=== PATIENT | male | born 1950 | race African-American/Black ===

== ENCOUNTER 2021-07-21 00:43 | Inpatient (IN) | payer OTHER ==
[~2021-07-21] VITALS: Ht 175.3 cm; Wt 124.3 kg
[2021-07-21] VITALS (14 sets, daily range): BP systolic 146–189; BP diastolic 76–101
[2021-07-21] MEDS ORDERED: METOCLOPRAMIDE HCL 10MG/2ML VIAL IV ONE (01:45)
[2021-07-21] MEDS ORDERED: SODIUM CHLORIDE 0.9% 1,000 ML IV ONE ×2 (01:45)
[2021-07-21 02:08] LABS: BASOPHILS % 0.7 % (0.0-2.0); EOSINOPHILS % 1.3 % (0.0-5.0); HEMATOCRIT. 37.9 % (42.0-52.0); HEMOGLOBIN. 11.8 g/dL (14.0-18.0); LYMPHOCYTES % 22.3 % (20.0-50.0); MEAN CORPUSCULAR HEMOGLOBIN 21.6 pg (28.0-32.0); MEAN CORPUSCULAR VOLUME 69.3 fL (80.0-94.0); MEAN PLATELET VOLUME 9.3 fl (7.4-10.4); MONOCYTES % 5.1 % (2.0-8.0); NEUTROPHILS % 70.6 % (40.0-76.0); PLATELET 216 x1000/uL (130-400); RED BLOOD CELL COUNT 5.48 mill/uL (4.7-6.1); RED CELL DISTRIBUTION WIDTH 16.8 % (11.6-14.6)
[2021-07-21 02:18] LABS: PROTHROMBIN TIME 11.1 sec (9.6-11.0)
[2021-07-21 02:20] LABS: CHLORIDE 106 mEq/L (98-107)
[2021-07-21 03:04] LABS: ETHANOL BLOOD < 10 mg/dL
[2021-07-21] MEDS ORDERED: PIPERACILLIN/TAZOBACTAM 3.375GM/50ML PREMIX IV ONE (03:15)
[2021-07-21] MEDS ORDERED: PIPERACILLIN/TAZ 3.375G PREMIX 50 ML IV NR (03:15)
[2021-07-21] MEDS ORDERED: HYDRALAZINE 20MG/ML VIAL IV ONE (03:30)
[2021-07-21 04:43] LABS: CLARITY URINE CLEAR (CLEAR); COLOR URINE YELLOW (YELLOW); KETONES URINE NEGATIVE (NEGATIVE); LEUKOCYTE ESTERASE URINE 1+ (NEGATIVE); NITRITE URINE NEGATIVE (NEGATIVE); OCCULT BLOOD URINE NEGATIVE (NEGATIVE); PROTEIN URINE NEGATIVE (NEGATIVE); SPECIFIC GRAVITY URINE 1.028 (1.005-1.030); UROBILINOGEN URINE 0.2 E.U./dL (0.2-1.0)
[2021-07-21 04:54] LABS: PLATELET ESTIMATE NORMAL
[2021-07-21 05:23] LABS: *BARBITURATES SCREEN URINE NEGATIVE (NEGATIVE)
[2021-07-21 05:24] LABS: *BENZODIAZEPINES SCREEN URINE NEGATIVE (NEGATIVE); *COCAINE SCREEN URINE NEGATIVE (NEGATIVE); CANNABINOID URINE SCREEN NEGATIVE (NEGATIVE); OPIATES URINE SCREEN NEGATIVE (NEGATIVE); PHENCYCLIDINE URINE SCREEN NEGATIVE (NEGATIVE)
[2021-07-21] MEDS ORDERED: IOHEXOL-300 100 ML BOTTLE ONE (05:28)
[2021-07-21 05:30] LABS: METHADONE URINE SCREEN NEGATIVE (NEGATIVE)
[2021-07-21 05:31] LABS: *AMPHETAMINES SCREEN URINE NEGATIVE (NEGATIVE)
[2021-07-21] MEDS ORDERED: LISI-649 (09:24)
[2021-07-21] MEDS ORDERED: POTA-9 (09:24)
[2021-07-21] MEDS ORDERED: TYLENOL CODEINE (09:30)
[2021-07-21] MEDS ORDERED: METF-414 PO (09:30)
[2021-07-21] MEDS ORDERED: TAMS-11 (09:30)
[2021-07-21] MEDS ORDERED: CLON0.2T PO (09:30)
[2021-07-21] MEDS ORDERED: ASPI-1497 PO (09:30)
[2021-07-21] MEDS ORDERED: ATOR40TA70 PO (09:30)
[2021-07-21] MEDS ORDERED: INSU100V3 (09:30)
[2021-07-21] MEDS ORDERED: CICL6.6S5 TP (09:30)
[2021-07-21] MEDS ORDERED: NPH,100V SUBCUT (09:30)
[2021-07-21] MEDS ORDERED: HYDR100T31 PO (09:30)
[2021-07-21] MEDS ORDERED: MAGNESIUM/ALUMINUM HYDROXIDE/SIMETHICONE 30ML UDC PO PRN (10:00)
[2021-07-21] MEDS ORDERED: CLONIDINE 0.1MG TABLET PO PRN (10:00)
[2021-07-21] MEDS ORDERED: DIPHENHYDRAMINE 50MG/ML VIAL IV PRN (10:00)
[2021-07-21] MEDS ORDERED: ACETAMINOPHEN 325MG TABLET PO PRN ×2 (10:00)
[2021-07-21] MEDS ORDERED: DEXTROSE 50% WATER 50ML SYRINGE IV PRN (10:00)
[2021-07-21] MEDS: HYDRALAZINE 20MG/ML VIAL IV PRN ×2 (10:44→18:55)
[2021-07-21] MEDS: BLOOD SUGAR DIAGNOSTIC STRIP TEST SCH ×3 (11:50→21:43)
[2021-07-21] MEDS: INSULIN LISPRO 100 UNITS/ML SUBCUT SCH ×3 (12:20→22:12)
[2021-07-21] MEDS: ONDANSETRON HCL 4MG/2ML INJ IV PRN ×2 (13:04→22:06)
[2021-07-21] MEDS ORDERED: MECLIZINE 25MG TABLET PO PRN (14:45)
[2021-07-21] MEDS: SODIUM CHLORIDE 0.9% INJ 3ML FLUSH IVF SCH ×2 (14:52→23:00)
[2021-07-21] MEDS ORDERED: POTASSIUM CHLORIDE INJ 40 MEQ in DEXT 5% WATER 250 ML IV NR (16:00)
[2021-07-21] MEDS ORDERED: SODIUM CHLORIDE 0.9% 500 ML IV ONE (17:00)
[2021-07-21] MEDS: AMLODIPINE 5MG TABLET PO SCH (21:38)
[2021-07-21] MEDS: CLONIDINE 0.1MG TABLET PO SCH (21:38)
[2021-07-21] MEDS: HYDRALAZINE HCL 100MG TABLET PO SCH (23:24)
[2021-07-22] VITALS (10 sets, daily range): BP systolic 131–173; BP diastolic 70–96
[2021-07-22] MEDS: BLOOD SUGAR DIAGNOSTIC STRIP TEST SCH ×2 (06:29→11:27)
[2021-07-22] MEDS: CLONIDINE 0.1MG TABLET PO SCH ×2 (06:32→15:03)
[2021-07-22] MEDS: SODIUM CHLORIDE 0.9% INJ 3ML FLUSH IVF SCH ×2 (06:32→14:00)
[2021-07-22] MEDS: HYDRALAZINE HCL 100MG TABLET PO SCH ×2 (06:32→15:02)
[2021-07-22] MEDS: INSULIN LISPRO 100 UNITS/ML SUBCUT SCH ×2 (07:20→12:08)
[2021-07-22 07:42] LABS: HEMATOCRIT 36.2 % (42.0-52.0); HEMOGLOBIN 11.2 g/dL (14.0-18.0); MEAN CORPUSCULAR HEMOGLOBIN 21.3 pg (28.0-32.0); MEAN CORPUSCULAR VOLUME 68.8 fL (80.0-94.0); PLATELET 206 x1000/uL (130-400); RED BLOOD CELL COUNT 5.27 mill/uL (4.7-6.1); RED CELL DISTRIBUTION WIDTH 16.7 % (11.6-14.6)
[2021-07-22 08:01] LABS: CHLORIDE 106 mEq/L (98-107)
[2021-07-22] MEDS: AMLODIPINE 5MG TABLET PO SCH (08:17)
[2021-07-22] MEDS ORDERED: PANTOPRAZOLE SODIUM 40 MG/VIAL IV SCH (09:00)
== END 2021-07-22 15:30 | disposition home or self-care (01) | DRG 392 ==
LOC: ER 00:43 → MICUSO 05:41 → EDBEDREQTM 05:43 → EDBEDREQ 05:43 → 3WST 09:10
PROVIDERS: ADMIT Internal Medicine; ATTEND Internal Medicine
DX: K52.9 Noninfective gastroenteritis and colitis, unspecified (principal); I31.3 Pericardial effusion (noninflammatory); Z68.41 Body mass index [BMI] 40.0-44.9, adult; E66.9 Obesity, unspecified; I10 Essential (primary) hypertension; E11.9 Type 2 diabetes mellitus without complications; E78.5 Hyperlipidemia, unspecified; H93.12 Tinnitus, left ear; E87.6 Hypokalemia; Z98.1 Arthrodesis status; Z79.4 Long term (current) use of insulin; Z83.3 Family history of diabetes mellitus
CPT/HCPCS: 36415; 71045; 74177; 80048; 80053; 80305; 80320; 81003; 82010; 82962; 83036; 83605; 83735; 83880; 84145; 84484; 85025; 85027; 86850; 86900; 87804; 93005; 93306; 99291; C9113; J0360; J1815; J2405; J2543; J2765; J3480; J7030; J7040; J7060; J8597; Q9967; G0480